=== PATIENT | female | born 1975 | race Caucasian/White ===

== ENCOUNTER 2020-06-05 12:35 | Outpatient (CLI) | payer BC ==
--- NOTE | 2020-06-05 13:04 | RAD ---
EXAM: 3 views of the right wrist HISTORY: Wrist strain with pain COMPARISON: None FINDINGS: 3 views of the right wrist shows no evidence of acute fracture or dislocation. No soft tiss ue swelling is seen. No degenerative changes are present. IMPRESSION: No evidence of acute osseous abnormality.
== END 2020-06-05 12:36 | disposition home or self-care (01) ==
LOC: BICRAD 12:35
PROVIDERS: ATTEND Nurse Practitioner Family
DX: S66.911A Strain of unspecified muscle, fascia and tendon at wrist and hand level, right hand, initial encounter (principal)

== ENCOUNTER 2020-06-25 08:20 | Outpatient (CLI) | payer BC ==
--- NOTE | 2020-06-25 11:32 | MRI ---
MRI RIGHT WRIST WITHOUT CONTRAST: Date: 06/25/2020 INDICATION: History of right wrist pain. COMPARISON: Prior right wrist radiograph dated 06/05/2020. FINDINGS: The scapholunate and lunotriquetral ligaments are intact. The visualized extrinsic ligaments appear i ntact. TFC appears intact. Bone marrow signal intensity of the wrist carpus appears within normal renae its. Alignment appears within normal limits. Carpal tunnel and its contents appear within normal limi ts. FCR and FCU tendons appear intact. There is some fluid signal intensity surrounding the ECRB and ECRL tendons within the second dorsal compartment. The remaining extensor tendons are normal appearin g. The ulnar neurovasculature appears normal. No acute fracture is evident. IMPRESSION: Mild ECRB and ECRL tenosynovitis. POS: [facility]
== END 2020-06-25 08:21 | disposition home or self-care (01) ==
LOC: SCSMRI 08:20
PROVIDERS: ATTEND Orthopaedic Surgery
DX: S69.81XD Other specified injuries of right wrist, hand and finger(s), subsequent encounter (principal); M65.88 Other synovitis and tenosynovitis, other site

== ENCOUNTER 2025-09-13 16:33 | Outpatient (CLI) | payer BC ==
[~2025-09-13 16:33] MED LIST: Iopamidol 370 76% 100 ML VIAL ONE
== END 2025-09-13 16:34 | disposition home or self-care (01) ==
LOC: CT 16:33
PROVIDERS: ATTEND Psychiatry & Neurology Psychiatry
DX: C19 Malignant neoplasm of rectosigmoid junction (principal); R93.3 Abnormal findings on diagnostic imaging of other parts of digestive tract; R60.0 Localized edema
CPT/HCPCS: 71260; 74177; Q9967

== ENCOUNTER 2025-10-02 11:00 | Outpatient (CLI) | payer BC | END 2025-10-02 11:01 | disposition home or self-care (01) | LOC: PET 11:00 | PROVIDERS: ATTEND Internal Medicine Hematology & Oncology | DX: C18.7 Malignant neoplasm of sigmoid colon (principal); K63.89 Other specified diseases of intestine | CPT/HCPCS: 78815; A9552 ==